=== PATIENT | female | born 1995 | race Caucasian/White ===

== ENCOUNTER 2017-12-21 08:05 | Emergency (ER) | payer OTHER ==
[~2017-12-21] VITALS: Ht 147.3 cm; Wt 57.6 kg
[~2017-12-21 08:05] MED LIST: AMIT25 PO; CEPH500 PO; CETI1SY PO; CLOT1TC TOP; CODACEE120 PO; HYDACE5 PO; Keflex500 MG PO; Norco 5-325 Ta1 EACH PO; ONDA4ODT MM; PENVK250SU PO; PRED15SY PO
[2017-12-21] MEDS ORDERED: Cleocin HCl150 MG PO (08:53)
[2017-12-21] MEDS ORDERED: Mupirocin22 GM TOP (08:53)
[2017-12-21] MEDS ORDERED: Bactrim Ds Tab1 EACH PO (08:53)
[2018-09-01] MEDS ORDERED: MUPIROCIN1 GM TOP (18:27)
[2018-09-01] MEDS ORDERED: Bactrim Ds Tab1 EACH PO (18:27)
[2018-09-01] MEDS ORDERED: CEPH500 PO (18:27)
== END 2017-12-21 09:09 | disposition home or self-care (01) ==
LOC: ER 08:05
DX: L08.9 Local infection of the skin and subcutaneous tissue, unspecified (principal); I50.9 Heart failure, unspecified; F17.210 Nicotine dependence, cigarettes, uncomplicated; Z79.2 Long term (current) use of antibiotics
CPT/HCPCS: 99283

== ENCOUNTER 2018-04-21 02:41 | Emergency (ER) | payer OTHER ==
[~2018-04-21 02:41] MED LIST changes: +Bactrim Ds Tab1 EACH PO; +Cleocin HCl150 MG PO; +Mupirocin22 GM TOP
[2018-04-21] MEDS ORDERED: Mupirocin22 GM TOP (14:11)
[2018-04-21] MEDS ORDERED: CEPH500 PO (14:11)
[2018-04-21] MEDS ORDERED: Bactrim Ds Tab1 EACH PO (14:11)
[2018-04-21] MEDS ORDERED: IBUP800 PO (14:14)
== END 2018-04-21 05:03 | disposition left against medical advice (07) ==
LOC: ER 02:41
DX: Z53.21 Procedure and treatment not carried out due to patient leaving prior to being seen by health care provider (principal)

== ENCOUNTER 2018-04-21 13:41 | Emergency (ER) | payer OTHER ==
[~2018-04-21] VITALS: Ht 144.8 cm; Wt 58.5 kg
[2018-04-21] MEDS ORDERED: Bactrim Ds Tab1 EACH PO (14:11)
[2018-04-21] MEDS ORDERED: Mupirocin22 GM TOP (14:11)
[2018-04-21] MEDS ORDERED: CEPH500 PO (14:11)
[2018-04-21] MEDS ORDERED: IBUP800 PO (14:14)
== END 2018-04-21 14:30 | disposition home or self-care (01) ==
LOC: ER 13:41
DX: L03.211 Cellulitis of face (principal); L03.011 Cellulitis of right finger; L03.116 Cellulitis of left lower limb; L03.115 Cellulitis of right lower limb; F17.210 Nicotine dependence, cigarettes, uncomplicated
CPT/HCPCS: J1885

== ENCOUNTER 2018-04-25 17:51 | Emergency (ER) | payer OTHER ==
[~2018-04-25] VITALS: Ht 144.8 cm; Wt 57.6 kg
[~2018-04-25 17:51] MED LIST changes: +IBUP800 PO
== END 2018-04-25 18:21 | disposition home or self-care (01) ==
LOC: ER 17:51
DX: L01.00 Impetigo, unspecified (principal); F17.210 Nicotine dependence, cigarettes, uncomplicated; I50.9 Heart failure, unspecified; Z79.899 Other long term (current) drug therapy
CPT/HCPCS: 99282

== ENCOUNTER 2018-11-13 05:26 | Emergency (ER) | payer OTHER ==
[~2018-11-13] VITALS: Ht 144.8 cm; Wt 47.6 kg
[~2018-11-13 05:26] MED LIST changes: +MUPIROCIN1 GM TOP
[2018-11-13] MEDS ORDERED: CEPH500 PO (06:59)
[2018-11-13] MEDS ORDERED: Bactrim Ds Tab1 EACH PO (06:59)
== END 2018-11-13 07:17 | disposition home or self-care (01) ==
LOC: ER 05:26
DX: L03.011 Cellulitis of right finger (principal); Z23 Encounter for immunization; F17.200 Nicotine dependence, unspecified, uncomplicated
CPT/HCPCS: 10060; 73140; 90471; 90714; 99283-25

== ENCOUNTER 2019-01-02 14:44 | Emergency (ER) | payer OTHER ==
[~2019-01-02] VITALS: Ht 144.8 cm; Wt 57.6 kg
[2019-01-02] MEDS ORDERED: Bactrim Ds Tab1 EACH PO (15:33)
== END 2019-01-02 15:43 | disposition home or self-care (01) ==
LOC: ER 14:44
DX: L02.415 Cutaneous abscess of right lower limb (principal); F17.210 Nicotine dependence, cigarettes, uncomplicated
CPT/HCPCS: 87070; 87075; 87077; 87147; 87186; 87205; 99283

== ENCOUNTER 2019-01-03 23:35 | Emergency (ER) | payer OTHER | END 2019-01-03 23:54 | disposition left against medical advice (07) | LOC: ER 23:35 | DX: Z53.21 Procedure and treatment not carried out due to patient leaving prior to being seen by health care provider (principal) ==

== ENCOUNTER 2019-01-04 00:06 | Emergency (ER) | payer OTHER | END 2019-01-04 03:30 | disposition left against medical advice (07) | LOC: ER 00:06 | DX: Z53.21 Procedure and treatment not carried out due to patient leaving prior to being seen by health care provider (principal) ==

== ENCOUNTER 2019-06-01 13:57 | Emergency (ER) | payer OTHER ==
[~2019-06-01] VITALS: Ht 144.8 cm; Wt 58.5 kg
[2019-06-01] MEDS ORDERED: Norco 5-325 Ta1 EACH PO (14:30)
[2019-06-01] MEDS ORDERED: Bactrim Ds Tab1 EACH PO (14:30)
[2019-06-01] MEDS ORDERED: Keflex500 MG PO (14:30)
== END 2019-06-01 15:05 | disposition home or self-care (01) ==
LOC: ER 13:57
DX: L03.011 Cellulitis of right finger (principal); I50.9 Heart failure, unspecified; F17.210 Nicotine dependence, cigarettes, uncomplicated
CPT/HCPCS: 96374; 96375; 99283-25; J0696; J1885

== ENCOUNTER 2020-03-29 21:02 | Emergency (ER) | payer OTHER ==
[~2020-03-29] VITALS: Ht 147.3 cm; Wt 61.2 kg
[2020-03-29] MEDS ORDERED: Cleocin HCl300 MG PO (23:10)
== END 2020-03-29 23:25 | disposition home or self-care (01) ==
LOC: ER 21:02
DX: L73.9 Follicular disorder, unspecified (principal); F17.210 Nicotine dependence, cigarettes, uncomplicated
CPT/HCPCS: 99282

== ENCOUNTER 2020-07-15 18:20 | Emergency (ER) | payer OTHER ==
[~2020-07-15] VITALS: Ht 144.8 cm; Wt 56.7 kg
[~2020-07-15 18:20] MED LIST changes: +Cleocin HCl300 MG PO
[2020-07-15] MEDS ORDERED: Vistaril25 MG PO (20:58)
== END 2020-07-15 21:04 | disposition home or self-care (01) ==
LOC: ER 18:20
DX: L28.0 Lichen simplex chronicus (principal); I50.9 Heart failure, unspecified; F17.210 Nicotine dependence, cigarettes, uncomplicated; Z79.899 Other long term (current) drug therapy
CPT/HCPCS: 99283

== ENCOUNTER 2021-09-20 20:09 | Inpatient (IN) | payer OTHER ==
[~2021-09-20] VITALS: Ht 144.8 cm; Wt 86.4 kg
[~2021-09-20 20:09] MED LIST changes: +Vistaril25 MG PO
[2021-09-20] MEDS ORDERED: PRENATAL TABLE1 EAC2 PO (20:42)
[2021-09-20 20:47] LABS: BASOPHILS ABSOLUTE AUTO 0.04 K/mm3 (0.00-0.23); BASOPHILS PERCENT AUTO 0 % (0-2); EOSINOPHILS ABSOLUTE AUTO 0.24 K/mm3 (0.00-0.68); EOSINOPHILS PERCENT AUTO 2 % (0-6); Hematocrit 36.7 % (33.0-51.0); Hemoglobin 12.6 g/dL (11.5-16.0); IMMATURE GRAN ABSOLUTE AUTO 0.08 K/mm3 (0.00-0.10); IMMATURE GRAN PERCENT AUTO 1 % (0-1); LYMPHOCYTES ABSOLUTE AUTO 1.69 K/mm3 (0.84-5.20); LYMPHOCYTES PERCENT AUTO 14 % (21-46); MONOCYTES ABSOLUTE AUTO 0.35 K/mm3 (0.16-1.47); MONOCYTES PERCENT AUTO 3 % (4-13); Mean Corpuscular HGB 30.4 pg (26.0-34.0); Mean Corpuscular HGB Conc 34.3 g/dL (31.5-36.5); Mean Corpuscular Volume 89 fL (80-100); Mean Platelet Volume 11.9 fL (9.1-12.4); NEUTROPHILS ABSOLUTE AUTO 9.49 K/mm3 (1.96-9.15); NEUTROPHILS PERCENT AUTO 80 % (41-73); Platelet Count 221 K/mm3 (150-400); RDW Coefficient Variation 13.2 % (11.7-14.2); RDW Standard Deviation 42.8 fL (35.1-46.3); Red Blood Cell Count 4.14 M/mm3 (3.80-5.20); White Blood Cell Count 11.89 K/mm3 (4.00-11.30)
[2021-09-20 21:23] LABS: Influenza A, PCR NEGATIVE (NEGATIVE); Influenza B, PCR NEGATIVE (NEGATIVE); Resp Syncytial Virus, PCR NEGATIVE (NEGATIVE); SARS-Cov-2 (COVID-19) PCR, MMC NEGATIVE (NEGATIVE)
[2021-09-20] MEDS ORDERED: FERROUS SULFAT325 M3 PO (22:50)
[2021-09-20] MEDS ORDERED: GLYB2.5 PO (22:51)
--- NOTE | 2021-09-22 13:09 | NUR ---
09/22/21 1309 Bradford Kim EPIDURAL CATHETER REMOVED BY DR. GRAY, TIP INTACT. PATIENT ARRIVED TO OR WITH PALOMO CATHETER IN PLACE.
[2021-09-22 13:28] LABS: PCO2 Cord - Arterial 49.6 mmHg (40-50); PO2 Cord - Arterial 23.8 mmHg (16-20); pH Cord - Arterial 7.28 (7.28-7.35)
[2021-09-22 13:30] LABS: PCO2 Cord - Venous 50.4 mmHg (40-50); PO2 Cord - Venous 35.8 mmHg (28-32); pH Umbilical Cord - Venous 7.31 (7.26-7.35)
--- NOTE | 2021-09-22 14:54 | NUR ---
PT TRANSPROT OUT TO ROOM, IN PACU PT WOULD FALL INTO DEEP SLEEP WITH SEVERE SNORING PT WOULD NOT AROUSE WITH STAFF TALKING OR EVEN HER MOTHER TALKING, SAO2 WOULD DROP DOWN TO 70-80 FOR SHORT PERIODS, PT MOTHER STATES HER DAUGHTER HAS SNORED LIKE THIS FOR ALONG TIME BUT JUST RECENTLY MOVED BACK HOME. SHE IS HOPING HER PCP WILL ORDER A SLEEP STUDY ON HER SHE STATES SHE IS WORRIED. REPT TO [facility]
[2021-09-23 05:15] LABS: BASOPHILS ABSOLUTE AUTO 0.04 K/mm3 (0.00-0.23); BASOPHILS PERCENT AUTO 0 % (0-2); EOSINOPHILS ABSOLUTE AUTO 0.35 K/mm3 (0.00-0.68); EOSINOPHILS PERCENT AUTO 2 % (0-6); Hemoglobin 9.4 g/dL (11.5-16.0); IMMATURE GRAN PERCENT AUTO 1 % (0-1); LYMPHOCYTES ABSOLUTE AUTO 1.81 K/mm3 (0.84-5.20); LYMPHOCYTES PERCENT AUTO 12 % (21-46); MONOCYTES ABSOLUTE AUTO 1.47 K/mm3 (0.16-1.47); MONOCYTES PERCENT AUTO 9 % (4-13); Mean Corpuscular HGB 31.1 pg (26.0-34.0); Mean Corpuscular HGB Conc 34.8 g/dL (31.5-36.5); Mean Corpuscular Volume 89 fL (80-100); Mean Platelet Volume 11.8 fL (9.1-12.4); NEUTROPHILS ABSOLUTE AUTO 11.95 K/mm3 (1.96-9.15); NEUTROPHILS PERCENT AUTO 76 % (41-73); Platelet Count 188 K/mm3 (150-400); RDW Coefficient Variation 13.2 % (11.7-14.2); RDW Standard Deviation 43.5 fL (35.1-46.3); Red Blood Cell Count 3.02 M/mm3 (3.80-5.20); White Blood Cell Count 15.72 K/mm3 (4.00-11.30)
--- NOTE | 2021-09-23 15:20 | NUR ---
ADRIANNA FELL ASLEEP SNORING HOLDING AT 1215 AFTER NOT EVEN A MINUTE OF BOTTLE FEEDING HIM. DIFFICULT TO AROUSE, BUT TOLD PT THAT SHE MAY NOT FALL ASLEEP WHIL FEEDING HER IT IS A HUGE SAFETY CONCERN. TAKEN TO NURSING STATION WHILE PT SLEEPING
--- NOTE | 2021-09-23 15:27 | NUR ---
DR RAMSAY HOSPITALIST HERE AT BS
[2021-09-23 17:45] LABS: Anion Gap 7 mmol/L (6-16); Blood Urea Nitrogen 9 mg/dL (8-24); Bun/Creatinine Ratio 25.8 (12.0-20.0); CO2, Blood 26 mmol/L (21-32); Calcium, Blood 8.5 mg/dL (8.5-10.1); Chloride, Blood 108 mmol/L (98-108); Creatinine, Blood 0.35 mg/dL (0.40-1.00); Glomerular Filtration Rate >60 (60-); Glucose, Blood 91 mg/dL (70-99); Potassium, Blood 4.3 mmol/L (3.5-5.5); Sodium, Blood 141 mmol/L (136-145)
[2021-09-24] MEDS ORDERED: IBUP800 PO (04:52)
--- NOTE | 2021-09-24 08:04 | NUR ---
RN HAD TO WAKE PT UP TO FEED BABY, MOM AND GRANDMA SOUND ASLEEP AND DID NOT HEAR NB FUSSING AFTER DR ROCK DID HER ASSESSMENT, IT TOOL SEVERAL ATTEMPTS TO AROUSE PATIENT AFTER DOING BP, TEMP. PT DID AWAKE AND WAS CONCERNED BABY WAS CRYING ALONG TIME. DISCUSSED WHAT HER HOME PLAN WOULD BE, ADRIANNA STATES HER MOM, DAD AND BROTHER (GAEL) AND HERSELF ARE CURRENTLY STAYING IN A MOTEL [facility]. HER BROTHER GAEL IS TRYING TO SECURE A HOME IN [place] FOR ALL OF THEM TO MOVE INTO SOON. ADRIANNA STATES GAEL WILL BE A BIG SUPPORT PERSON FOR HER AND THAT THEIR MOTEL ROOM CURRENTLY IN SMALL AND SOMEONE WILL HEAR THE BABY WAKE UP. ADRIANNA'S MOM ALSO HAS HEARING DEFICIT AND NEEDS HER HEARING AMPLIFER ON TO HEAR NOISE.
--- NOTE | 2021-09-24 08:20 | NUR ---
ASSISTED WITH HER FIRST DIAPER CHANGE, COACHED PT ON HOW TO HOLD NB LEGS, WIPING AND REDIAPERING, PT DID WELL WITH STEP BY STEP INSTRUCTIONS, PT THAN BOTTLE FED 15CC FORMULA THAN BURPED BABY, PT DENIED WANTING PAIN MEDICATION AT THIS TIME STATES SHE DID NOT WANT TO TAKING ANYTHING WHILE SHE WAS HOLDING THE BABY
--- NOTE | 2021-09-24 14:22 | NUR ---
P/C FROM PT BROTHER GAEL (PT GAVE PERMISSION FOR RN TO SPEAK WITH HIM) INFORMED GAEL THAT HER DOCTOR HAS ORDER CONSULT WITH POWER SEWING MACHINE OPERATOR FOR HER SLEEP APNEA, AND THAT WE HAD CONTACTED [facility] TO SEE IF WE COULD GET SOME RESOURCES FOR THEIR FAMILY. EXPLAINED CONCERNS THAT ADRIANNA AND HER MOTHER NOT WAKING UP WHEN NB CRYING, GAEL STATES THAT HIS FATHER WILL ALSO BE AROUND WHEN HE IS NOT, GAEL IS CURRENTLY LOOKING FOR HOUSING BUT HAS BEEN UNSUCCESSFUL AND HE HAS LIMITED RESOURCES HIMSELF "IM TRYING TO DO MY BEST" GAEL WAS APPRECIATIVE OF ANY HELP WE COULD FIND.
--- NOTE | 2021-09-24 15:37 | NUR ---
CONTACTED [employer] [place], IN CONJUCTION WITH DR. MARTIN THEY HAVE ARRANGED SETTING PT UP WITH SLEEP LAB FOR A HOME EVALUATION AND SLEEP STUDY[facility], NEW MOTHER AND BABY [facility].
--- NOTE | 2021-09-24 17:30 | NUR ---
PT UP AMBULATING AROUND ROOM CARING WELL FOR SELF, SHOWERED INDEPENDENTLY TODAY HAS BEEN BOTTLE FEEDING NB T/O AND DOING ALL NB CARE W/ RN AT BEDSIDE IF NEEDED
--- NOTE | 2021-09-24 23:30 | NUR ---
DISCUSSED BILATERAL PEDAL EDEMA WITH PATIENT. RECOMMENDED ELEVATING HER FEET WHILE SHE IS IN BED.
[2021-09-25 04:38] LABS: PCO2 Arterial 42.9 mmHg (35-45); PO2 Arterial 97.3 mmHg (80-100); pH Blood Arterial 7.42 (7.35-7.45)
--- NOTE | 2021-09-25 08:17 | NUR ---
medicated with 1 percocet, up amb in room. reports would like to go home at 3pm today, asked about her sleep study, encouraged to talk to her doctor. pt wants to shower after she eats then will call rn to do assessment, some questions of gina benitez, currently has a seal. pt feed baby and was anxious that baby took 34cc, that is was too much. educated on 20-30cc is perfect, but if baby would like a little more can try, if overfeeds baby could be fussy or spitting up. just have to try. baby is currently content and sleeping in crib
--- NOTE | 2021-09-25 09:30 | NUR ---
azeb with [facility] called talked to pt, will get pt set up with WIC, will be out to see them tomorrow at 1400 09-26-2021, will take formula and bottles, talking to mom about a safe place for baby to sleep,
--- NOTE | 2021-09-25 11:20 | NUR ---
vs were done after pt up in room ambulating around, and abd incision was re-taped with the gina dressing to keep the suction. showed pt how to use the gina dressing tape if she develops a leak,
--- NOTE | 2021-09-25 11:35 | NUR ---
dr dior to be here on her lunch hour, need a discharge from pulmonaligist. gracy from [facility] emergency department is sending someone over between [phone] for setup on system pt is taking home for sleep. tb rt has talked to gracy today
--- NOTE | 2021-09-25 11:40 | NUR ---
dr islas reports ok to dc pt home, pt to follow up with dr lockett as an outpatient
--- NOTE | 2021-09-25 12:04 | NUR ---
dr islas at bedside, put pt cpap on her, pt biox was 79% hard to wake her, she hardly woke up for dr islas placing the cpap on her, with the cpap on for 3 minutes 94-96% with cpap on. dr islas talked to pt mom to set up appointment in the office
[2021-09-25] MEDS ORDERED: Percocet 5-3251 EACH PO (14:26)
[2021-09-25] MEDS ORDERED: ALBU90OI6 INH (14:26)
--- NOTE | 2021-09-25 15:34 | NUR ---
DC TEACHING GONE OVER WITH MOM AND GRANDMA. MOM GOT A LITTLE OVER WHELMED, SHE ASKED QUESTIONS, SHOWED HER THE BOOK AND THE LITTLE QRS CODES TO SCAN AND WATCH VIDEOS. THAT MADE HER FEEL BETTER, SHE SAID DURING THE TEACHING SHE WAS TIRED AND COULD SLEEP, SHE WAS SITTING IN A CHAIR. SHE TRIED HARD TO LISTEN TO THE TEACHING, HER MOM ALSO ASKED LOTS OF GOOD QUESTIONS ALL QUESTIONS WERE ANSWERED, TRIED TO GET THE TEACHING DONE BEFORE SARAH COME WITH CPAP MACHINE.
--- NOTE | 2021-09-25 17:00 | NUR ---
dc home at 1700, pt brother is here to pick them up, then will go to pharmacy to get scripts. pt mom reports she got over whelmed with the daron teaching on the cpap machine and almost cried, they have [employer] number, pt has appt for ppfu, dr islas, dr fowler for baby and will be getting a care for the sleep study, pt is aware and her mom is aware that she needs to call dr dior office for an appt. alexand[place] 12-[address] aguiar [address]las 10-16-21 at 0850 and the sleep study will call, dr islas ordered it urgent. as long as pt is awake her biox is 94-97%, but when sleeping drops drastically, encouraged to where the cpap when ever she naps or sleeps at night. pt reports doesnt like the over whelming flow of air, but was encouraged to keep wearing it. pt mom left her walker to be thrown away. reports has abunch of them and doesnt want it anymore. pt has [facility] number to call with questions. in the room before discharge, the pt was explaining things to her brother that she was taught in dc teaching, gave pt roger for remembering.
== END 2021-09-25 17:00 | disposition home or self-care (01) | DRG 787 ==
LOC: OBS 20:09 → BC 20:10 → OBS 20:18 → BC 20:19
PROVIDERS: Internal Medicine; ADMIT Obstetrics & Gynecology
PROC: 10D00Z1 Extraction of Products of Conception, Low, Open Approach (ICD-10-PCS; principal; 2021-09-22 12:00)
PROC: 5A1935Z Respiratory Ventilation, Less than 24 Consecutive Hours (ICD-10-PCS; 2021-09-23)
DX: O24.429 Gestational diabetes mellitus in childbirth, unspecified control (principal); O99.354 Diseases of the nervous system complicating childbirth; Z37.0 Single live birth; Z3A.38 38 weeks gestation of pregnancy; G47.30 Sleep apnea, unspecified; O64.0XX0 Obstructed labor due to incomplete rotation of fetal head, not applicable or unspecified; O99.334 Smoking (tobacco) complicating childbirth; F17.210 Nicotine dependence, cigarettes, uncomplicated; Z20.822 Contact with and (suspected) exposure to COVID-19; Z98.890 Other specified postprocedural states; G47.34 Idiopathic sleep related nonobstructive alveolar hypoventilation; O99.02 Anemia complicating childbirth; D64.9 Anemia, unspecified
CPT/HCPCS: 0241U; 36415; 36600; 71046; 80048; 82803; 82947; 85025; 86850; 86900; 86901; 94640; 94660; 94760; 94762; A9270; J0290; J0694; J1885; J2001; J2210; J2590; J2765; J3010; J7120

== ENCOUNTER → 2024-11-01 | Outpatient (CLI) | payer OTHER ==
[~2024-11-01] MED LIST changes: +ALBU90OI6 INH; +FERROUS SULFAT325 M3 PO; +GLYB2.5 PO; +PRENATAL TABLE1 EAC2 PO; +Percocet 5-3251 EACH PO
== END ==
LOC: LAB 18:02 → LAB SHORT 18:02
DX: R39.15 Urgency of urination (principal)
CPT/HCPCS: 87086